=== PATIENT | female | born 1940 | race Caucasian/White ===

== ENCOUNTER → 2020-02-02 | Outpatient (CLI) | payer MEDICARE ==
[~2020-02-02] MED LIST: IOVERSOL 350 MG/ML 100 ML VIAL ONE; SODIUM CHLORIDE 0.9% 100 ML ONE
== END | disposition home or self-care (01) ==
LOC: RADMN 08:37
PROVIDERS: ATTEND Surgery Vascular Surgery
DX: I67.82 Cerebral ischemia (principal); I66.8 Occlusion and stenosis of other cerebral arteries; I65.23 Occlusion and stenosis of bilateral carotid arteries; I99.8 Other disorder of circulatory system; G31.9 Degenerative disease of nervous system, unspecified; I77.1 Stricture of artery; I70.203 Unspecified atherosclerosis of native arteries of extremities, bilateral legs
CPT/HCPCS: 70496; 70498; 93880; 93925; J7050; Q9967

== ENCOUNTER 2023-05-25 16:29 | Inpatient (IN) | payer MEDICARE ==
[~2023-05-25] VITALS: Ht 154.9 cm; Wt 69.8 kg
[2023-05-25] MEDS ORDERED: CARV3 PO (16:50)
[2023-05-25] MEDS ORDERED: LEVO25TA9 PO (16:50)
[2023-05-25 16:56] LABS: COVID AG,FIA SOURCE NASAL SWAB
[2023-05-25 16:58] LABS: BASOPHILS % (AUTO) 0.7 % (0.0-2.0); EOSINOPHILS % (AUTO) 1.4 % (1.0-6.0); HEMATOCRIT 34.4 % (36-46); HEMOGLOBIN 11.3 g/dL (12.0-16.0); LYMPHOCYTES # (AUTO) 1.6 K/uL (1.0-4.8); LYMPHOCYTES % (AUTO) 30.7 % (22.0-44.0); MEAN CORPUSCULAR HEMOGLOBIN 30.2 pg (26.0-34.0); MEAN CORPUSCULAR HGB CONC 32.9 G/dL (31.0-37.0); MEAN CORPUSCULAR VOLUME 92 fL (80-100); MONOCYTES # (AUTO) 0.5 K/uL (0.1-1.0); MONOCYTES % (AUTO) 9.9 % (2.0-9.0); NEUTROPHILS % (AUTO) 57.3 % (40.0-70.0); PLATELET COUNT (AUTO) 216 K/uL (150-450); RED BLOOD CELL COUNT(AUTO) 3.75 MIL/uL (4.00-5.20); RED CELL DISTRIBUTION WIDTH 12.3 % (11.5-14.5); WHITE BLOOD COUNT (AUTO) 5.3 K/uL (4.5-11.0)
[2023-05-25] MEDS ORDERED: MORPHINE SULFATE 2 MG/ML SYRINGE IVP ONE (17:15)
[2023-05-25 17:18] LABS: SARS-COV2 (COVID) ANTIGEN,FIA Negative (Negative)
[2023-05-25 17:35] LABS: ANION GAP 11 mmol/L (8-16); CALCIUM, TOTAL 9.7 mg/dL (8.8-10.5); CARBON DIOXIDE 27 mmol/L (22-29); CHLORIDE 100 mmol/L (98-107); CREATININE 0.42 mg/dL (0.60-1.30); GLOMERULAR FILTR. RATE CALC > 60 mL/min (>60); GLUCOSE,RANDOM 124 mg/dL (70-110); POTASSIUM 3.3 mmol/L (3.5-5.1); SODIUM SERUM 138 mmol/L (136-145); UREA NITROGEN, BLOOD 22 mg/dL (7-18)
[2023-05-25 17:40] LABS: ALANINE AMINOTRANSFERASE 23 U/L (12-78); ALKALINE PHOSPHATASE 67 U/L (46-116); ASPARTATE AMINOTRANSFERASE 17 U/L (15-37); TOTAL PROTEIN, SERUM 7.2 g/dL (6.4-8.2)
[2023-05-25] MEDS ORDERED: OxyCODONE HCL/ACETAMINOPHEN 5-325 MG TABLET PO PRN (19:15)
[2023-05-25] MEDS ORDERED: POTASSIUM CHL 10 MEQ/WATER 50 ML IV PRN (19:15)
[2023-05-25] MEDS ORDERED: SODIUM CHLORIDE 0.9% 1,000 ML IV ONE (19:15)
[2023-05-25] MEDS ORDERED: POTASSIUM CHLORIDE 20 MEQ ER TABLET PO PRN (19:15)
[2023-05-25] MEDS ORDERED: MAGNESIUM HYDROXIDE SUSPENSION 30 ML UDCUP PO PRN (19:15)
[2023-05-25] MEDS: ONDANSETRON HCL 4 MG/2 ML VIAL IVP PRN ×2 (19:22→21:00)
[2023-05-25] MEDS: MORPHINE SULFATE 2 MG/ML SYRINGE IVP PRN ×2 (19:22→20:59)
[2023-05-25 19:43] LABS: THYROID STIMULATING HORMONE 7.81 uIU/mL (0.36-3.74)
[2023-05-25 19:48] LABS: APPEARANCE,URINE CLEAR (CLEAR); BILIRUBIN,URINE NEGATIVE (NEGATIVE); COLOR,URINE COLORLESS (YELLOW); GLUCOSE, URINE (UA) NEGATIVE (NEGATIVE); LEUKOCYTE ESTERASE ,URINE NEGATIVE (NEGATIVE); NITRATE,URINE NEGATIVE (NEGATIVE); OCCULT BLOOD,URINE NEGATIVE (NEGATIVE); PH,URINE 7.5 (5.0-8.0); PROTEIN,URINE NEGATIVE (NEGATIVE); SPECIFIC GRAVITIY, URINE 1.013 (1.003-1.030); UROBILINOGEN,URINE <=1.0 mg/dL (<=1.0)
[2023-05-25] MEDS: DOCUSATE SODIUM 100 MG CAPSULE PO SCH (20:58)
[2023-05-25] MEDS: HEPARIN SODIUM,PORCINE 5,000 UNITS/ML VIAL SQ SCH (23:11)
[2023-05-25 23:55] VITALS: BP 159/97; PULSE 66; RESP 20; TEMP 98
[2023-05-26] MEDS: MORPHINE SULFATE 2 MG/ML SYRINGE IVP PRN ×4 (00:29→13:29)
[2023-05-26 04:10] VITALS: BP 142/63; PULSE 66; RESP 18; TEMP 97.7
[2023-05-26 07:46] LABS: POTASSIUM 3.9 mmol/L (3.5-5.1)
[2023-05-26 08:05] VITALS: BP 152/66; PULSE 77; RESP 19; TEMP 97.9
[2023-05-26] MEDS: PANTOPRAZOLE SODIUM 40 MG/VIAL IVP SCH (08:46)
[2023-05-26] MEDS: HEPARIN SODIUM,PORCINE 5,000 UNITS/ML VIAL SQ SCH ×2 (08:46→16:00)
[2023-05-26] MEDS: DOCUSATE SODIUM 100 MG CAPSULE PO SCH ×2 (09:00→20:38)
[2023-05-26] MEDS ORDERED: BUPIVACAINE HCL/PF 0.5% 30 ML VIAL ONE (10:10)
[2023-05-26] MEDS ORDERED: BACITRACIN 28 GM OINTMENT TP ONE (10:10)
[2023-05-26] MEDS ORDERED: INFLUENZA VIRUS VACCINE QVS 2023-24 (6MO+)/PF 60 MCG/0.5 ML SYRINGE IM. ONE (11:15)
[2023-05-26] MEDS ORDERED: PNEUMOCOCCAL VACCINE POLYVALENT 0.5 ML SYRINGE [PPSV23] IM. ONE (11:15)
[2023-05-26] MEDS ORDERED: RINGERS SOLUTION,LACTATED 1,000 ML IV ONE (14:45)
[2023-05-26] MEDS ORDERED: BUPIVACAINE LIPOSOME/PF 1.3%-13.3MG/ML SUSPENSION 20 ML VIAL INJ ONE (15:00)
[2023-05-26] MEDS ORDERED: VANCOMYCIN HCL 1 GM/VIAL ONE (15:04)
[2023-05-26 15:43] VITALS: BP 148/62; PULSE 72; RESP 19; TEMP 97.8
[2023-05-26] MEDS ORDERED: MEPERIDINE-PF 25 MG/ML VIAL IVP PRN (18:00)
[2023-05-26] MEDS ORDERED: HYDROmorphone HCL 2 MG/ML SYRINGE IVP PRN (18:00)
[2023-05-26] MEDS ORDERED: FentaNYL CITRATE PF 100 MCG/2 ML VIAL IVP PRN (18:00)
[2023-05-26 19:49] VITALS: BP 141/62; PULSE 63; RESP 18; TEMP 97.7
[2023-05-27] MEDS: HEPARIN SODIUM,PORCINE 5,000 UNITS/ML VIAL SQ SCH ×3 (00:03→16:16)
[2023-05-27] MEDS: CeFAZolin 2 GM/DEXTROSE 50 ML IV SCH ×3 (00:03→17:22)
[2023-05-27 04:33] VITALS: BP 119/42; PULSE 76; RESP 18; TEMP 98.1
[2023-05-27] MEDS: LEVOTHYROXINE SODIUM 75 MCG TABLET PO SCH (05:45)
[2023-05-27] MEDS ORDERED: KETAMINE HCL 50 MG/ML 10 ML VIAL IVP ONE (07:09)
[2023-05-27] MEDS ORDERED: PHENYLEPHRINE HCL 10 MG/ML VIAL IVP ONE (07:09)
[2023-05-27] MEDS ORDERED: PROPOFOL 1% ISO-OSM 1000 MG/100 ML BOTTLE IV ONE (07:09)
[2023-05-27] MEDS ORDERED: FentaNYL CITRATE PF 100 MCG/2 ML VIAL IVP ONE (07:09)
[2023-05-27] MEDS ORDERED: 0.9% SODIUM CHLORIDE 10 ML VIAL IVP ONE (07:09)
[2023-05-27] MEDS ORDERED: EPHEDrine SULFATE 50 MG/ML VIAL IM ONE (07:09)
[2023-05-27] MEDS ORDERED: CeFAZolin SODIUM 1 GM VIAL IVP ONE (07:09)
[2023-05-27] MEDS: DOCUSATE SODIUM 100 MG CAPSULE PO SCH ×2 (08:32→20:42)
[2023-05-27] MEDS: PANTOPRAZOLE SODIUM 40 MG/VIAL IVP SCH (08:32)
[2023-05-27] MEDS: OxyCODONE HCL/ACETAMINOPHEN 5-325 MG TABLET PO PRN ×2 (10:04→17:29)
[2023-05-27 16:29] VITALS: BP 138/66; PULSE 68; RESP 19; TEMP 98.2
[2023-05-27] MEDS: OXYGEN THERAPY IH SCH (20:00)
[2023-05-27 20:27] VITALS: BP 142/56; PULSE 76; RESP 18; TEMP 97.5
[2023-05-28] MEDS: HEPARIN SODIUM,PORCINE 5,000 UNITS/ML VIAL SQ SCH ×3 (00:15→16:36)
[2023-05-28 04:47] VITALS: BP 153/57; PULSE 87; RESP 18; TEMP 98.2
[2023-05-28] MEDS: HYDROmorphone HCL 2 MG/ML SYRINGE IVP PRN ×2 (05:55→15:51)
[2023-05-28] MEDS: LEVOTHYROXINE SODIUM 75 MCG TABLET PO SCH (06:07)
[2023-05-28] MEDS: OXYGEN THERAPY IH SCH (08:00)
[2023-05-28] MEDS: DOCUSATE SODIUM 100 MG CAPSULE PO SCH ×2 (08:55→20:39)
[2023-05-28] MEDS: PANTOPRAZOLE SODIUM 40 MG/VIAL IVP SCH (08:55)
[2023-05-28 09:00] VITALS: PULSE 92; RESP 18; TEMP 98.1
[2023-05-28 09:09] VITALS: PULSE 92; RESP 20; TEMP 98
[2023-05-28] MEDS: OxyCODONE HCL/ACETAMINOPHEN 5-325 MG TABLET PO PRN (10:12)
[2023-05-28] MEDS: MULTIVITAMINS WITH MINERALS, THERAPEUTIC TABLET PO SCH (12:29)
[2023-05-28 16:52] VITALS: BP 160/57; PULSE 96; RESP 20; TEMP 100.2
[2023-05-28] MEDS: ACETAMINOPHEN 325 MG TABLET PO PRN (17:00)
[2023-05-28 19:34] LABS: INFLUENZA TYPE A NEGATIVE FOR TYPE A (NEGATIVE); INFLUENZA TYPE B POSITIVE FOR TYPE B (NEGATIVE)
[2023-05-28 20:30] LABS: RESPIRATORY SYNCYTIAL VIRS,FIA NEGATIVE (Negative)
[2023-05-28] MEDS: CALCIUM CIT/VITAMIN D3 200 MG-250 UNITS[6.25MCG] TABLET PO SCH (20:39)
[2023-05-28 21:29] VITALS: BP 144/53; PULSE 77; RESP 18; TEMP 98.4
[2023-05-28 23:48] LABS: APPEARANCE,URINE CLEAR (CLEAR); BILIRUBIN,URINE NEGATIVE (NEGATIVE); COLOR,URINE YELLOW (YELLOW); GLUCOSE, URINE (UA) TRACE mg/dL (NEGATIVE); KETONES,URINE TRACE mg/dL (NEGATIVE); LEUKOCYTE ESTERASE ,URINE NEGATIVE (NEGATIVE); NITRATE,URINE NEGATIVE (NEGATIVE); OCCULT BLOOD,URINE NEGATIVE (NEGATIVE); PH,URINE 5.5 (5.0-8.0); PROTEIN,URINE TRACE mg/dL (NEGATIVE); SPECIFIC GRAVITIY, URINE 1.016 (1.003-1.030); UROBILINOGEN,URINE <=1.0 mg/dL (<=1.0)
[2023-05-29] MEDS: HEPARIN SODIUM,PORCINE 5,000 UNITS/ML VIAL SQ SCH ×4 (00:14→23:56)
[2023-05-29 05:20] VITALS: BP 142/61; PULSE 84; RESP 18; TEMP 98.3
[2023-05-29] MEDS: LEVOTHYROXINE SODIUM 75 MCG TABLET PO SCH (05:32)
[2023-05-29] MEDS: HYDROmorphone HCL 2 MG/ML SYRINGE IVP PRN (06:12)
[2023-05-29] MEDS: OXYGEN THERAPY IH SCH (08:00)
[2023-05-29 08:08] LABS: ANION GAP 6 mmol/L (8-16); CALCIUM, TOTAL 9.5 mg/dL (8.8-10.5); CARBON DIOXIDE 29 mmol/L (22-29); CHLORIDE 101 mmol/L (98-107); GLOMERULAR FILTR. RATE CALC > 60 mL/min (>60); GLUCOSE,RANDOM 120 mg/dL (70-110); POTASSIUM 4.1 mmol/L (3.5-5.1); SODIUM SERUM 136 mmol/L (136-145); UREA NITROGEN, BLOOD 20 mg/dL (7-18)
[2023-05-29 08:16] VITALS: BP 114/50; PULSE 78; RESP 18; TEMP 99.5
[2023-05-29 08:28] LABS: BASOPHILS % (AUTO) 0.4 % (0.0-2.0); EOSINOPHILS % (AUTO) 0.2 % (1.0-6.0); HEMATOCRIT 21.2 % (36-46); HEMOGLOBIN 7.2 g/dL (12.0-16.0); LYMPHOCYTES # (AUTO) 1.4 K/uL (1.0-4.8); LYMPHOCYTES % (AUTO) 14.4 % (22.0-44.0); MEAN CORPUSCULAR HGB CONC 33.8 G/dL (31.0-37.0); MEAN CORPUSCULAR VOLUME 92 fL (80-100); MONOCYTES # (AUTO) 1.6 K/uL (0.1-1.0); MONOCYTES % (AUTO) 16.5 % (2.0-9.0); NEUTROPHILS # (AUTO) 6.5 K/uL (1.8-7.7); NEUTROPHILS % (AUTO) 68.5 % (40.0-70.0); PLATELET COUNT (AUTO) 186 K/uL (150-450); RED BLOOD CELL COUNT(AUTO) 2.31 MIL/uL (4.00-5.20); RED CELL DISTRIBUTION WIDTH 12.2 % (11.5-14.5); WHITE BLOOD COUNT (AUTO) 9.5 K/uL (4.5-11.0)
[2023-05-29] MEDS: CALCIUM CIT/VITAMIN D3 200 MG-250 UNITS[6.25MCG] TABLET PO SCH ×2 (08:55→19:57)
[2023-05-29] MEDS: PANTOPRAZOLE SODIUM 40 MG/VIAL IVP SCH (08:55)
[2023-05-29] MEDS: DOCUSATE SODIUM 100 MG CAPSULE PO SCH ×2 (08:55→19:57)
[2023-05-29] MEDS: OxyCODONE HCL/ACETAMINOPHEN 5-325 MG TABLET PO PRN (08:56)
[2023-05-29] MEDS: MULTIVITAMINS WITH MINERALS, THERAPEUTIC TABLET PO SCH (08:56)
[2023-05-29] MEDS: ETHYL ALCOHOL 62% ANTISEPTIC NASAL SANITIZER 0.6 ML AMPUL NASAL SCH ×2 (09:02→19:57)
[2023-05-29] MEDS: OSELTAMIVIR PHOSPHATE 75 MG CAPSULE PO SCH ×2 (12:08→19:57)
[2023-05-29 16:01] VITALS: BP 151/54; PULSE 81; RESP 18; TEMP 98.7
[2023-05-29 20:41] VITALS: BP 138/52; PULSE 85; RESP 20; TEMP 100.8
[2023-05-29] MEDS: ACETAMINOPHEN 325 MG TABLET PO PRN (23:56)
[2023-05-30] VITALS (12 sets, daily range): BP systolic 106–170; BP diastolic 43–70; PULSE 60–96; RESP 18–20; TEMP 98.2–99.6
[2023-05-30] MEDS: LEVOTHYROXINE SODIUM 75 MCG TABLET PO SCH (06:58)
[2023-05-30] MEDS: OxyCODONE HCL/ACETAMINOPHEN 5-325 MG TABLET PO PRN (08:40)
[2023-05-30] MEDS: OSELTAMIVIR PHOSPHATE 75 MG CAPSULE PO SCH ×2 (08:40→20:41)
[2023-05-30] MEDS: HEPARIN SODIUM,PORCINE 5,000 UNITS/ML VIAL SQ SCH (08:41)
[2023-05-30] MEDS: MULTIVITAMINS WITH MINERALS, THERAPEUTIC TABLET PO SCH (08:41)
[2023-05-30] MEDS: CALCIUM CIT/VITAMIN D3 200 MG-250 UNITS[6.25MCG] TABLET PO SCH ×2 (08:41→20:41)
[2023-05-30] MEDS: OXYGEN THERAPY IH SCH (08:42)
[2023-05-30] MEDS: DOCUSATE SODIUM 100 MG CAPSULE PO SCH ×2 (09:00→20:41)
[2023-05-30] MEDS: PANTOPRAZOLE SODIUM 40 MG/VIAL IVP SCH (09:00)
[2023-05-30] MEDS: ETHYL ALCOHOL 62% ANTISEPTIC NASAL SANITIZER 0.6 ML AMPUL NASAL SCH ×2 (09:04→20:41)
[2023-05-30 10:37] LABS: BASOPHILS % (AUTO) 0.3 % (0.0-2.0); EOSINOPHILS % (AUTO) 0.3 % (1.0-6.0); LYMPHOCYTES % (AUTO) 13.9 % (22.0-44.0); MEAN CORPUSCULAR HEMOGLOBIN 29.9 pg (26.0-34.0); MEAN CORPUSCULAR HGB CONC 32.8 G/dL (31.0-37.0); MEAN CORPUSCULAR VOLUME 91 fL (80-100); MONOCYTES % (AUTO) 13.9 % (2.0-9.0); NEUTROPHILS # (AUTO) 5.3 K/uL (1.8-7.7); NEUTROPHILS % (AUTO) 71.6 % (40.0-70.0); PLATELET COUNT (AUTO) 225 K/uL (150-450); RED BLOOD CELL COUNT(AUTO) 2.11 MIL/uL (4.00-5.20); RED CELL DISTRIBUTION WIDTH 12.2 % (11.5-14.5); WHITE BLOOD COUNT (AUTO) 7.4 K/uL (4.5-11.0)
[2023-05-30 10:39] LABS: HEMATOCRIT 19.2 % (36-46); HEMOGLOBIN 6.3 g/dL (12.0-16.0)
[2023-05-30] MEDS ORDERED: BISACODYL 10 MG RECTAL RECTAL SUPPOSITORY PR PRN (10:45)
[2023-05-30] MEDS ORDERED: SODIUM CHLORIDE 0.9% 500 ML IV ONE (11:43)
[2023-05-30] MEDS: HYDROmorphone HCL 2 MG/ML SYRINGE IVP PRN (18:48)
[2023-05-31 04:03] VITALS: BP 135/65; PULSE 81; RESP 18; TEMP 98.7
[2023-05-31] MEDS: LEVOTHYROXINE SODIUM 75 MCG TABLET PO SCH (06:07)
[2023-05-31 07:50] VITALS: BP 184/62; PULSE 89; RESP 18; TEMP 97.8
[2023-05-31 08:18] LABS: HEMATOCRIT 24.7 % (36-46); HEMOGLOBIN 8.3 g/dL (12.0-16.0)
[2023-05-31] MEDS: MULTIVITAMINS WITH MINERALS, THERAPEUTIC TABLET PO SCH (08:30)
[2023-05-31] MEDS: OXYGEN THERAPY IH SCH ×2 (08:30→20:00)
[2023-05-31] MEDS: PANTOPRAZOLE SODIUM 40 MG/VIAL IVP SCH (08:30)
[2023-05-31] MEDS: OSELTAMIVIR PHOSPHATE 75 MG CAPSULE PO SCH ×2 (08:30→20:48)
[2023-05-31] MEDS: CALCIUM CIT/VITAMIN D3 200 MG-250 UNITS[6.25MCG] TABLET PO SCH ×2 (08:30→20:48)
[2023-05-31] MEDS: DOCUSATE SODIUM 100 MG CAPSULE PO SCH ×2 (08:31→20:59)
[2023-05-31] MEDS: ETHYL ALCOHOL 62% ANTISEPTIC NASAL SANITIZER 0.6 ML AMPUL NASAL SCH ×2 (08:31→20:48)
[2023-05-31] MEDS: HYDROmorphone HCL 2 MG/ML SYRINGE IVP PRN (14:08)
[2023-05-31 19:22] LABS: HEMATOCRIT 24.5 % (36-46)
[2023-05-31 20:31] VITALS: BP 132/58; PULSE 87; RESP 18; TEMP 99
[2023-05-31] MEDS: OxyCODONE HCL/ACETAMINOPHEN 5-325 MG TABLET PO PRN (22:39)
[2023-06-01 04:25] VITALS: BP 165/62; PULSE 83; RESP 18; TEMP 97.8
[2023-06-01 05:22] VITALS: BP 145/62; PULSE 84
[2023-06-01] MEDS: LEVOTHYROXINE SODIUM 75 MCG TABLET PO SCH (05:25)
[2023-06-01 07:09] LABS: HEMATOCRIT 23.9 % (36-46)
[2023-06-01] MEDS: OXYGEN THERAPY IH SCH ×2 (08:00→20:00)
[2023-06-01 08:24] VITALS: BP 146/65; PULSE 79; RESP 18; TEMP 97.5
[2023-06-01] MEDS: PANTOPRAZOLE SODIUM 40 MG/VIAL IVP SCH (09:24)
[2023-06-01] MEDS: OSELTAMIVIR PHOSPHATE 75 MG CAPSULE PO SCH ×2 (09:25→20:13)
[2023-06-01] MEDS: ETHYL ALCOHOL 62% ANTISEPTIC NASAL SANITIZER 0.6 ML AMPUL NASAL SCH ×2 (09:25→20:13)
[2023-06-01] MEDS: DOCUSATE SODIUM 100 MG CAPSULE PO SCH ×2 (09:25→20:17)
[2023-06-01] MEDS: MULTIVITAMINS WITH MINERALS, THERAPEUTIC TABLET PO SCH (09:25)
[2023-06-01] MEDS: CALCIUM CIT/VITAMIN D3 200 MG-250 UNITS[6.25MCG] TABLET PO SCH ×2 (09:28→20:13)
[2023-06-01] MEDS: OxyCODONE HCL/ACETAMINOPHEN 5-325 MG TABLET PO PRN (09:32)
[2023-06-01 13:44] LABS: HEMATOCRIT 25.7 % (36-46); HEMOGLOBIN 8.5 g/dL (12.0-16.0)
[2023-06-01 15:27] VITALS: BP 139/58; PULSE 76; RESP 18; TEMP 98.3
[2023-06-01 19:27] VITALS: BP 146/63; PULSE 88; RESP 18; TEMP 98.2
[2023-06-01 21:30] LABS: HEMATOCRIT 24.4 % (36-46); HEMOGLOBIN 8.1 g/dL (12.0-16.0)
[2023-06-02 05:10] VITALS: BP 138/77; PULSE 89; RESP 19; TEMP 98.2
[2023-06-02] MEDS: LEVOTHYROXINE SODIUM 75 MCG TABLET PO SCH (05:42)
[2023-06-02] MEDS: CALCIUM CIT/VITAMIN D3 200 MG-250 UNITS[6.25MCG] TABLET PO SCH ×2 (09:00→20:30)
[2023-06-02] MEDS: DOCUSATE SODIUM 100 MG CAPSULE PO SCH ×2 (09:00→20:33)
[2023-06-02] MEDS: OXYGEN THERAPY IH SCH ×2 (09:00→20:00)
[2023-06-02] MEDS: OxyCODONE HCL/ACETAMINOPHEN 5-325 MG TABLET PO PRN (09:01)
[2023-06-02] MEDS: PANTOPRAZOLE SODIUM 40 MG/VIAL IVP SCH (09:01)
[2023-06-02] MEDS: OSELTAMIVIR PHOSPHATE 75 MG CAPSULE PO SCH ×2 (09:02→20:30)
[2023-06-02] MEDS: MULTIVITAMINS WITH MINERALS, THERAPEUTIC TABLET PO SCH (09:02)
[2023-06-02] MEDS: ETHYL ALCOHOL 62% ANTISEPTIC NASAL SANITIZER 0.6 ML AMPUL NASAL SCH ×2 (11:22→20:30)
[2023-06-02 11:40] VITALS: BP 136/64; PULSE 75; RESP 18; TEMP 98.1
[2023-06-02 17:09] VITALS: BP 132/64; PULSE 85; RESP 20; TEMP 99.6
[2023-06-02 20:27] VITALS: BP 131/66; PULSE 85; RESP 18; TEMP 98
[2023-06-03 04:40] VITALS: BP 138/70; PULSE 68; RESP 18; TEMP 98.3
[2023-06-03] MEDS: LEVOTHYROXINE SODIUM 75 MCG TABLET PO SCH (06:04)
[2023-06-03 07:00] LABS: BASOPHILS % (AUTO) 0.5 % (0.0-2.0); EOSINOPHILS % (AUTO) 1.3 % (1.0-6.0); HEMATOCRIT 25.9 % (36-46); HEMOGLOBIN 8.7 g/dL (12.0-16.0); LYMPHOCYTES # (AUTO) 1.5 K/uL (1.0-4.8); LYMPHOCYTES % (AUTO) 16.1 % (22.0-44.0); MEAN CORPUSCULAR HEMOGLOBIN 30.3 pg (26.0-34.0); MEAN CORPUSCULAR HGB CONC 33.6 G/dL (31.0-37.0); MEAN CORPUSCULAR VOLUME 90 fL (80-100); MONOCYTES # (AUTO) 1.3 K/uL (0.1-1.0); MONOCYTES % (AUTO) 13.7 % (2.0-9.0); NEUTROPHILS # (AUTO) 6.4 K/uL (1.8-7.7); NEUTROPHILS % (AUTO) 68.4 % (40.0-70.0); PLATELET COUNT (AUTO) 413 K/uL (150-450); RED BLOOD CELL COUNT(AUTO) 2.87 MIL/uL (4.00-5.20); RED CELL DISTRIBUTION WIDTH 12.4 % (11.5-14.5); WHITE BLOOD COUNT (AUTO) 9.4 K/uL (4.5-11.0)
[2023-06-03 07:14] LABS: ANION GAP 7 mmol/L (8-16); CALCIUM, TOTAL 9.4 mg/dL (8.8-10.5); CARBON DIOXIDE 29 mmol/L (22-29); CHLORIDE 102 mmol/L (98-107); CREATININE 0.47 mg/dL (0.60-1.30); GLOMERULAR FILTR. RATE CALC > 60 mL/min (>60); GLUCOSE,RANDOM 122 mg/dL (70-110); POTASSIUM 3.9 mmol/L (3.5-5.1); SODIUM SERUM 138 mmol/L (136-145); UREA NITROGEN, BLOOD 17 mg/dL (7-18)
[2023-06-03] MEDS: OXYGEN THERAPY IH SCH ×2 (08:00→20:00)
[2023-06-03] MEDS: CALCIUM CIT/VITAMIN D3 200 MG-250 UNITS[6.25MCG] TABLET PO SCH ×2 (09:00→20:29)
[2023-06-03] MEDS: DOCUSATE SODIUM 100 MG CAPSULE PO SCH ×2 (09:00→20:29)
[2023-06-03 09:08] VITALS: BP 137/71; PULSE 86; RESP 18; TEMP 98
[2023-06-03] MEDS: MULTIVITAMINS WITH MINERALS, THERAPEUTIC TABLET PO SCH (09:19)
[2023-06-03] MEDS: ETHYL ALCOHOL 62% ANTISEPTIC NASAL SANITIZER 0.6 ML AMPUL NASAL SCH ×2 (09:19→20:29)
[2023-06-03] MEDS: PANTOPRAZOLE SODIUM 40 MG/VIAL IVP SCH (09:19)
[2023-06-03] MEDS: OxyCODONE HCL/ACETAMINOPHEN 5-325 MG TABLET PO PRN (09:19)
[2023-06-03] MEDS ORDERED: CALC-884 PO (12:27)
[2023-06-03 15:50] VITALS: BP 135/53; PULSE 84; RESP 19; TEMP 98
[2023-06-03 20:23] VITALS: BP 146/54; PULSE 91; RESP 18; TEMP 98.3
[2023-06-04 05:00] VITALS: BP 149/54; PULSE 76; RESP 18; TEMP 98.4
[2023-06-04] MEDS: LEVOTHYROXINE SODIUM 75 MCG TABLET PO SCH (05:31)
[2023-06-04] MEDS: ETHYL ALCOHOL 62% ANTISEPTIC NASAL SANITIZER 0.6 ML AMPUL NASAL SCH (07:50)
[2023-06-04] MEDS: DOCUSATE SODIUM 100 MG CAPSULE PO SCH (07:50)
[2023-06-04] MEDS: MULTIVITAMINS WITH MINERALS, THERAPEUTIC TABLET PO SCH (07:50)
[2023-06-04] MEDS: CALCIUM CIT/VITAMIN D3 200 MG-250 UNITS[6.25MCG] TABLET PO SCH (07:50)
[2023-06-04] MEDS: PANTOPRAZOLE SODIUM 40 MG/VIAL IVP SCH (07:51)
[2023-06-04 07:59] VITALS: BP 144/66; PULSE 72; RESP 20; TEMP 98.4
[2023-06-04] MEDS: OxyCODONE HCL/ACETAMINOPHEN 5-325 MG TABLET PO PRN (10:58)
[2023-06-04 15:54] VITALS: BP 142/65; PULSE 80; RESP 18; TEMP 98.3
== END 2023-06-04 16:10 | DRG 482 ==
LOC: EMS 16:33 → 6S 19:11
PROVIDERS: ADMIT Internal Medicine; ATTEND Internal Medicine
PROC: 0QH706Z Insertion of Intramedullary Internal Fixation Device into Left Upper Femur, Open Approach (ICD-10-PCS; principal; 2023-05-26 17:15)
PROC: 30233N1 Transfusion of Nonautologous Red Blood Cells into Peripheral Vein, Percutaneous Approach (ICD-10-PCS; 2023-05-30)
DX: S72.142A Displaced intertrochanteric fracture of left femur, initial encounter for closed fracture (principal); S72.22XA Displaced subtrochanteric fracture of left femur, initial encounter for closed fracture; W01.0XXA Fall on same level from slipping, tripping and stumbling without subsequent striking against object, initial encounter; I25.10 Atherosclerotic heart disease of native coronary artery without angina pectoris; Z20.822 Contact with and (suspected) exposure to COVID-19; D64.89 Other specified anemias; I10 Essential (primary) hypertension; E78.00 Pure hypercholesterolemia, unspecified; I73.9 Peripheral vascular disease, unspecified; E87.6 Hypokalemia; E03.9 Hypothyroidism, unspecified; J10.1 Influenza due to other identified influenza virus with other respiratory manifestations; Z88.2 Allergy status to sulfonamides; Y93.89 Activity, other specified; Y92.89 Other specified places as the place of occurrence of the external cause; Y99.8 Other external cause status
CPT/HCPCS: 71045; 73503; 80048; 80053; 81003; 82271; 83735; 84132; 84443; 85014; 85018; 85025; 86850; 86900; 86901; 86923; 87040; 87081; 87420; 87804; 93005; 93306; 93970; 97110; 97163; 97167; 97530; 97535; 99285; C9113; C9290; G0238; J0690; J1170; J1644; J2270; J2405; J2704; J3010; J3370; J3490; J7030; J7040; J7120; P9016; Q9967; 36415-L1; 36415-TC; 73552-LT; Z7610